=== PATIENT | female | born 1965 | race African-American/Black ===

== ENCOUNTER 2017-05-10 04:35 | Emergency (ER) | payer MEDICAID ==
[~2017-05-10] VITALS: Ht 165.1 cm; Wt 50.0 kg
[~2017-05-10 04:35] MED LIST: ACET-2128 PO; CLOT15CR2 TP; CYAN10009 PO; LORA10TA7 PO; OMEP20TA2 PO; ONDA4TAB51 PO; SULF1TAB47 PO
[2017-05-10 08:52] LABS: BASOPHILS % 0.4 % (0.0-2.0); EOSINOPHILS % 1.6 % (0.0-5.0); HEMATOCRIT. 33.6 % (36.0-48.0); HEMOGLOBIN. 11.4 g/dL (12.0-16.0); LYMPHOCYTES % 26.5 % (20.0-50.0); MEAN CORPUSCULAR HEMOGLOBIN 27.8 pg (28.0-32.0); MEAN CORPUSCULAR VOLUME 81.9 fL (81.0-99.0); MEAN PLATELET VOLUME 7.1 fl (7.4-10.4); MONOCYTES % 7.7 % (2.0-8.0); NEUTROPHILS % 63.8 % (40.0-76.0); PLATELET 328 x1000/uL (130-400); RED CELL DISTRIBUTION WIDTH 13.1 % (11.6-14.6)
[2017-05-10 08:56] LABS: PROTHROMBIN TIME 10.7 sec
[2017-05-10] MEDS ORDERED: MORPHINE SULFATE 4 MG/ML CPJ (NOT FOR IM USE) IV ONE (09:00)
[2017-05-10] MEDS ORDERED: ONDANSETRON HCL 4MG/2ML VIAL IV ONE (09:00)
[2017-05-10 09:04] LABS: CARBON DIOXIDE 29 mEq/L (21-32); CHLORIDE 107 mEq/L (98-107)
[2017-05-10] MEDS ORDERED: POTASSIUM CHLORIDE 20MEQ TABLET SR PO ONE (09:30)
[2017-05-10 12:53] VITALS: BP 110/73
[2017-05-10 13:31] LABS: CLARITY URINE CLEAR (CLEAR); COLOR URINE YELLOW (YELLOW); KETONES URINE 2+ (NEGATIVE); LEUKOCYTE ESTERASE URINE NEGATIVE (NEGATIVE); NITRITE URINE NEGATIVE (NEGATIVE); OCCULT BLOOD URINE 1+ (NEGATIVE); PH URINE 6.5 (4.5-8.0); PROTEIN URINE NEGATIVE (NEGATIVE); SPECIFIC GRAVITY URINE 1.087 (1.005-1.030); UROBILINOGEN URINE 0.2 E.U./dL (0.2-1.0)
== END 2017-05-10 14:01 | disposition home or self-care (01) ==
LOC: ER 04:35
DX: K76.89 Other specified diseases of liver (principal); N28.1 Cyst of kidney, acquired; I10 Essential (primary) hypertension; R91.8 Other nonspecific abnormal finding of lung field; F17.200 Nicotine dependence, unspecified, uncomplicated; F12.90 Cannabis use, unspecified, uncomplicated
CPT/HCPCS: 36415; 74177; 80053; 81001; 81025; 83690; 85025; 85610; 96374; 96375; 99285; J2270; J2405; Z7610

== ENCOUNTER 2019-11-07 20:59 | Emergency (ER) | payer MEDICAID ==
[~2019-11-07] VITALS: Ht 154.9 cm; Wt 51.0 kg
[~2019-11-07 20:59] MED LIST changes: +CYAN-50 PO; -CYAN10009 PO
[2019-11-07] MEDS ORDERED: KETOROLAC 60MG/2ML VIAL IM STA (23:45)
[2019-11-08] MEDS ORDERED: ONDANSETRON 4MG ODT PO ONE (00:30)
[2019-11-08] MEDS ORDERED: VISCOUS LIDOCAINE 2% 15 ML UDC PO ONE (00:45)
[2019-11-08] MEDS ORDERED: MAGNESIUM/ALUMINUM HYDROXIDE/SIMETHICONE 30ML UDC PO ONE (00:45)
[2019-11-08 03:12] VITALS: BP 109/74
== END 2019-11-08 03:55 | disposition home or self-care (01) ==
LOC: ER 20:59
DX: J06.9 Acute upper respiratory infection, unspecified (principal); R07.89 Other chest pain; J02.9 Acute pharyngitis, unspecified; I10 Essential (primary) hypertension; F12.10 Cannabis abuse, uncomplicated; Z90.49 Acquired absence of other specified parts of digestive tract; Z90.710 Acquired absence of both cervix and uterus; Z88.5 Allergy status to narcotic agent
CPT/HCPCS: 71045; 93005; 96372; 99283; J1885; Q0162